=== PATIENT | male | born 1965 | race Caucasian/White ===

== ENCOUNTER 2019-01-25 12:44 | Emergency (ER) | payer OTHER ==
[~2019-01-25] VITALS: Ht 165.1 cm; Wt 128.8 kg
[~2019-01-25 12:44] MED LIST: 'TENORMIN50 MG PO; BUPROPION HCL100 M1 PO; KEFLEX500 MG PO; LEADER ASPIRIN81 MG PO; MEVACOR20 MG PO; MOBIC15 MG PO; MS CONTIN30 MG PO; Metformin Hydr500 MG PO; PRILOSEC20 M1 PO; TRAZODO50 MG PO; VICO75300 PO; Zestril,Prinivi40 MG PO
[2019-01-25] MEDS ORDERED: NAPROSYN500 MG PO (13:11)
[2019-01-25] MEDS ORDERED: KEFLEX500 M1 PO (13:11)
== END 2019-01-25 13:20 | disposition home or self-care (01) ==
LOC: ED 12:44
DX: S61.211A Laceration without foreign body of left index finger without damage to nail, initial encounter (principal); R03.0 Elevated blood-pressure reading, without diagnosis of hypertension; Z23 Encounter for immunization; Z88.8 Allergy status to other drugs, medicaments and biological substances; Z79.899 Other long term (current) drug therapy; Z79.82 Long term (current) use of aspirin; W26.0XXA Contact with knife, initial encounter; Y93.H2 Activity, gardening and landscaping; Y92.89 Other specified places as the place of occurrence of the external cause; Y99.8 Other external cause status

== ENCOUNTER 2021-09-26 10:19 | Emergency (ER) | payer OTHER ==
[~2021-09-26] VITALS: Ht 167.6 cm; Wt 108.9 kg
[~2021-09-26 10:19] MED LIST changes: +KEFLEX500 M1 PO; +NAPROSYN500 MG PO
== END 2021-09-26 12:33 | disposition home or self-care (01) ==
LOC: ED 10:19
DX: S30.861A Insect bite (nonvenomous) of abdominal wall, initial encounter (principal); W57.XXXA Bitten or stung by nonvenomous insect and other nonvenomous arthropods, initial encounter; Y93.89 Activity, other specified; Y92.89 Other specified places as the place of occurrence of the external cause; Y99.8 Other external cause status